=== PATIENT | female | born 1980 | race Caucasian/White ===

== ENCOUNTER 2016-02-17 14:50 | Emergency (ER) | payer OTHER ==
[~2016-02-17] VITALS: Wt 59.5 kg
--- NOTE | 2016-02-17 15:02 | QN ---
Documentation Comment Patient was seen immediately upon arrival as she arrived by ambulance. Chief complaint is for spider bite. The patient will be sent to triage for further vital signs and will be seen by another provider. Medical screening exam was initiated. NALLELY RAMOS MD Feb 17, 2016 15:02
[2016-02-17] MEDS ORDERED: ONDANSETRON (ODT) 4 MG TAB ODT STA (15:47)
[2016-02-17] MEDS ORDERED: HYDROCODONE/APAP (10/325) TAB PO ONE (16:00)
[2016-02-17] MEDS ORDERED: LIDOCAINE 1%/EPI (MDV) 20 ML INJ SC ONE (16:00)
[2016-02-17] MEDS ORDERED: TRIMETHOPRIM/SULFAMETHOX (DS) TAB PO ONE (16:00)
[2016-02-17] MEDS ORDERED: CEPHALEXIN 500 MG CAP PO ONE (16:00)
[2016-02-17] MEDS ORDERED: CEPH-443 PO (16:25)
[2016-02-17] MEDS ORDERED: BACTDS PO (16:25)
[2016-02-17] MEDS ORDERED: HYDR-902 PO (16:25)
--- NOTE | 2016-02-17 18:38 | ERD ---
ER Documentation Chief Complaint Date/Time DATE: 02/17/16 TIME: 18:34 Chief Complaint ABCESS ON LEFT HAND HPI Patient is a 35-year-old female with previous PE who presents with infection. She was brought in by ambulance. She has an infection to the back of her left hand. She says that it started 1 week ago but became worse last night after she tried putting peroxide on it. She said that she is having pain with movement of her left hand at this time. She is left-handed. She has not tried any antibiotics as of yet. It is red and painful. Upon review of old medical records this is the patient's first visit to the emergency department. She does not currently have a primary doctor. She does smoke cigarettes and admits to injecting methamphetamine but does not inject into her hand. ROS All systems reviewed and are negative except as per history of present illness. Medications Home Meds Active Scripts Hydrocodone/Acetaminophen (Lockhart 10-325 Tablet) 1 Each Tablet, 1 TAB PO Q6H Y for PAIN, #7 TAB Prov:NALLELY RAMOS MD 02/17/16 Cephalexin* (Keflex*) 500 Mg Capsule, 500 MG PO QID for 7 Days, CAP Prov:NALLELY RAMOS MD 02/17/16 Sulfamethoxazole-Trimethoprim* (Bactrim* DS) 800-160 Mg Tab, 1 TAB PO BID for 7 Days, TAB Prov:NALLELY RAMOS MD 02/17/16 Allergies Allergies: Coded Allergies: No Known Allergy (Unverified , 02/17/16) PMhx/Soc History of Surgery: No Anesthesia Reaction: No Hx Neurological Disorder: No Hx Respiratory Disorders: No Hx Cardiac Disorders: No Hx Psychiatric Problems: No Hx Miscellaneous Medical Probl: No Hx Alcohol Use: Yes Hx Substance Use: Yes Hx Tobacco Use: Yes Smoking Status: Current every day smoker FmHx Unknown as she was in foster care Physical Exam Vitals Vital Signs Date Time Temp Pulse Resp B/P Pulse Ox O2 Delivery O2 Flow Rate FiO2 02/17/16 15:09 99.9 110 17 128/72 98 Physical Exam Const: Mild distress secondary to pain Head: Atraumatic Eyes: Normal Conjunctiva ENT: Normal External Ears, Nose and Mouth. Neck: Full range of motion..~ No meningismus. Resp: Clear to auscultation bilaterally Cardio: Regular rate and rhythm, no murmurs Abd: Soft, non tender, non distended. Normal bowel sounds Skin: Abscess with cellulitis to the dorsum of the left hand approximately 3 x 3 cm, no fusiform swelling to the digits of the left hand to suggest flexor tenosynovitis Back: No midline or flank tenderness Ext: No cyanosis, or edema Neur: Awake and alert, limited range of motion of the left hand given the swelling and pain of a dorsal abscess Psych: Normal Mood and Affect Results 24 hrs Laboratory Tests Test 02/17/16 16:31 Bedside Glucose 104mg/dL Current Medications Medications (Trade) Dose Ordered Sig/Surendra Route PRN Reason Start Time Stop Time Status Last Admin Dose Admin Trimethoprim/ Sulfamethoxazole (Bactrim (Ds)) 1 tab ONCE ONCE PO 02/17/16 16:00 02/17/16 16:01 DC 02/17/16 16:08 Cephalexin (Keflex) 500 mg ONCE ONCE PO 02/17/16 16:00 02/17/16 16:01 DC 02/17/16 16:08 Acetaminophen/ Hydrocodone Bitart (Lockhart (10/325)) 1 tab ONCE ONCE PO 02/17/16 16:00 02/17/16 16:01 DC 02/17/16 16:08 Ondansetron HCl (Zofran Odt) 4 mg ONCE STAT ODT 02/17/16 15:47 02/17/16 15:49 DC 02/17/16 16:08 Lidocaine/ Epinephrine (Xylocaine 1%/ Epi (Mdv) 20 ml) 20 ml ONCE ONCE SC 02/17/16 16:00 02/17/16 16:01 DC Procedures/MDM Abscess Incision and Drainage with irrigation by me: Location: Left hand dorsum Anesthesia: [Local 1% Lidocaine with epinephrine] Technique: [Irrigated. Disrupted loculations w/ instrumentation ] Packing: [None] Complications: [Neurovascularly intact post procedure] 48 hour wound check. Scar minimization instructions given. Patient's skin symptoms have stabilized while they have been evaluated in the department and are appropriate for outpatient care and work up. Exam and w/u not consistent w/ sepsis, deep space infection, or foreign body. Smoking Cessation Therapy: Pt. was lectured for greater than 3 minutes on the health risks of continued smoking and the benefits of cessation. Patient is a 35-year-old female with methamphetamine use and smoking presents with a abscess to the back of the left hand. There was some mild streaking up the left arm but she is afebrile and otherwise having no sign of sepsis at this time. I believe the best course of action would be incision and drainage and antibiotics. I have given the first dose of Keflex and Bactrim in the ER. I discussed with her the possibility of transfer for hand surgery but she would prefer to try outpatient treatment at this time and therefore I will treat with Bactrim and Keflex for a one-week course. The hand looks much better after incision and drainage. She now has full range of motion. She can return for any worsening symptoms. At this point I doubt flexor tenosynovitis. I doubt sepsis. She should follow-up with the local clinics within 24-48 hours for recheck and have also given her information for Dr. Moncada from hand surgery. I would like her to see a hand surgeon within 24-48 hours as well. Departure Diagnosis: Primary Impression: Cellulitis of hand Additional Impressions: Swelling Abscess Condition: Fair Patient Instructions: Cellulitis, Abscess, Incision And Drainage Referrals: JOHANA MONCADA MD [facility] YOU HAVE RECEIVED A MEDICAL SCREENING EXAM AND THE RESULTS INDICATE THAT YOU DO NOT HAVE A CONDITION THAT REQUIRES URGENT TREATMENT IN THE EMERGENCY DEPARTMENT. FURTHER EVALUATION AND TREATMENT OF YOUR CONDITION CAN WAIT UNTIL YOU ARE SEEN IN YOUR DOCTORS OFFICE WITHIN THE NEXT 1-2 DAYS. IT IS YOUR RESPONSIBILITY TO MAKE AN APPOINTMENT FOR [facility]. IF YOU HAVE A PRIMARY DOCTOR --you should call your primary doctor and schedule an appointment IF YOU DO NOT HAVE A PRIMARY DOCTOR YOU CAN CALL OUR PHYSICIAN REFERRAL HOTLINE AT IF YOU CAN NOT AFFORD TO SEE A PHYSICIAN YOU CAN CHOSE FROM THE FOLLOWING [facility] CLINICS [facility] [address] [facility] [address] [facility]. [facility] [address] [facility] [address] [facility] [address] [facility]. [facility]. [address] Additional Instructions: Call your primary care doctor TOMORROW for an appointment during the next 1-2 days.See the doctor sooner or return here if your condition worsens before your appointment time. SPECIALIST: YOU HAVE A MEDICAL CONDITION WHICH REQUIRES YOU TO SEE A SPECIALIST WITHIN THE NEXT 1-2 DAYS. PLEASE FOLLOW UP WITH YOUR PRIMARY PHYSICIAN FOR REFFERAL.IF YOU DO NOT HAVE A PRIMARY CARE PHYSICIAN AND/OR YOU CAN NOT AFFORD TO SEE A PHYSICIAN THE FOLLOWING RESOURCES HAVE BEEN SUPPLIED TO YOU. IT IS YOUR RESPONSIBILITY TO BE SEEN BY THE SPECIALIST NALLELY RAMOS MD Feb 17, 2016 18:37
== END 2016-02-17 16:36 | disposition home or self-care (01) ==
LOC: FTE 14:50
DX: L03.114 Cellulitis of left upper limb (principal); M79.89 Other specified soft tissue disorders; F17.210 Nicotine dependence, cigarettes, uncomplicated
CPT/HCPCS: 82962

== ENCOUNTER 2018-08-04 08:53 | Emergency (ER) | payer SELFPAY ==
[~2018-08-04] VITALS: Ht 170.2 cm; Wt 54.5 kg
[~2018-08-04 08:53] MED LIST: BACTDS PO; CEPH-443 PO; HYDR-3980 PO
[2018-08-04 09:08] VITALS: BP 131/79; PULSE 90; RESP 20; Ht 170.2 cm; Wt 54.5 kg
[2018-08-04] MEDS ORDERED: ONDANSETRON (ODT) 4 MG TAB ODT STA (09:48)
[2018-08-04] MEDS ORDERED: ACET-141 PO (12:39)
[2018-08-04] MEDS ORDERED: CEPH-443 PO (12:40)
--- NOTE | 2018-08-04 14:08 | ERD ---
ER Documentation Chief Complaint Chief Complaint R88 left lower quadrant pain Hx: cervical CA satge 2 HPI History of Present Illness: 37-year-old HOMELESS female who reports a past medical history of factor VIII and cervical cancer coming in today due to complaint of left lower quadrant abdominal pain. Patient reports that she was diagnosed last year with stage II cervical cancer but she has not seek treatment because " it was just too much that it will not take care of it". Associated symptoms includes dysuria. At home pharmacological/nonpharmacological treatment for symptoms: Patient reports buying Vicodin off the streets Denies recent foreign travel ROS All systems reviewed and are negative except as per history of present illness. Medications Home Meds Active Scripts Cephalexin* (Keflex*) 500 Mg Capsule, 500 MG PO QID for URINARY TRACT INFECTION for 7 Days, CAP Prov:CHRISTIANE KOWALSKI NP 08/04/18 Acetaminophen* (Acetaminophen*) 500 MG Extra Strength Tablet, 1000 MG PO Q6H PRN for PAIN AND OR ELEVATED TEMP, #30 TAB Prov:CHRISTIANE KOWALSKI NP 08/04/18 Hydrocodone/Acetaminophen (Edwall 10-325 Tablet) 1 Each Tablet, 1 TAB PO Q6H PRN for PAIN, #7 TAB Prov:NALLELY RAMOS MD 02/17/16 Cephalexin* (Keflex*) 500 Mg Capsule, 500 MG PO QID for 7 Days, CAP Prov:NALLELY RAMOS MD 02/17/16 Sulfamethoxazole-Trimethoprim* (Bactrim* DS) 800-160 Mg Tab, 1 TAB PO BID for 7 Days, TAB Prov:NALLELY RAMOS MD 02/17/16 Allergies Allergies: Coded Allergies: No Known Allergy (Unverified , 02/17/16) PMhx/Soc History of Surgery: No Anesthesia Reaction: No Hx Neurological Disorder: No Hx Respiratory Disorders: No Hx Cardiac Disorders: No Hx Psychiatric Problems: No Hx Miscellaneous Medical Probl: No Hx Alcohol Use: Yes Hx Substance Use: Yes Hx Tobacco Use: Yes Smoking Status: Current every day smoker FmHx Family History: No diabetes Physical Exam Vitals Vital Signs Date Temp Pulse Resp B/P (MAP) Pulse Ox O2 O2 Flow FiO2 Time Delivery Rate 08/04/18 99.0 90 20 131/79 99 09:08 (96) Physical Exam Const: No acute distress, anxious Head: Atraumatic Eyes: Normal Conjunctiva ENT: Normal External Ears, Nose and Mouth. Neck: Full range of motion. No meningismus. Resp: Clear to auscultation bilaterally Cardio: Regular rate and rhythm, no murmurs Abd: Soft, left lower quadrant and suprapubic tenderness, non distended. Normal bowel sounds Skin: No petechiae or rashes, small open wounds in which patient appears to have picked that skin or possibly drug user wound Back: No midline or flank tenderness Ext: No cyanosis, or edema Neur: Awake and alert Psych: Normal Mood and Affect Result Diagram: 08/04/1893308/04/18933 Results 24 hrs Laboratory Tests Test 08/04/18 09:34 08/04/18 09:45 White Blood Count 9.6 10^3/ul Red Blood Count 4.42 10^6/ul Hemoglobin 12.4 g/dl Hematocrit 38.7 % Mean Corpuscular Volume 87.6 fl Mean Corpuscular Hemoglobin 28.1 pg Mean Corpuscular Hemoglobin Concent 32.0 g/dl Red Cell Distribution Width 12.3 % Platelet Count 270 10^3/UL Mean Platelet Volume 8.2 fl Immature Granulocytes % 0.200 % Neutrophils % 77.5 % Lymphocytes % 14.6 % Monocytes % 7.0 % Eosinophils % 0.4 % Basophils % 0.3 % Nucleated Red Blood Cells % 0.0 /100WBC Immature Granulocytes # 0.020 10^3/ul Neutrophils # 7.5 10^3/ul Lymphocytes # 1.4 10^3/ul Monocytes # 0.7 10^3/ul Eosinophils # 0.0 10^3/ul Basophils # 0.0 10^3/ul Nucleated Red Blood Cells # 0.0 10^3/ul Urine Color YELLOW Urine Clarity CLOUDY Urine pH 7.0 Urine Specific [place] 1.019 Urine Ketones NEGATIVE mg/dL Urine Nitrite POSITIVE mg/dL Urine Bilirubin NEGATIVE mg/dL Urine Urobilinogen NEGATIVE mg/dL Urine Leukocyte Esterase TRACE Yasmin/ul Urine Microscopic RBC 1 /HPF Urine Microscopic WBC 24 /HPF Urine Bacteria FEW /HPF Urine Mucus FEW /HPF Urine Hemoglobin NEGATIVE mg/dL Urine Glucose NEGATIVE mg/dL Urine Total Protein NEGATIVE mg/dl Sodium Level 139 mmol/L Potassium Level 4.3 mmol/L Chloride Level 100 mmol/L Carbon Dioxide Level 30 mmol/L Anion Gap 9 Blood Urea Nitrogen 14 mg/dl Creatinine 0.74 mg/dl Est Glomerular Filtrat Rate mL/min > 60 mL/min Glucose Level 83 mg/dl Calcium Level 9.3 mg/dl Total Bilirubin 0.8 mg/dl Direct Bilirubin 0.00 mg/dl Indirect Bilirubin 0.8 mg/dl Aspartate Amino Transf (AST/SGOT) 18 IU/L Alanine Aminotransferase (ALT/SGPT) 15 IU/L Alkaline Phosphatase 61 IU/L Total Protein 8.1 g/dl Albumin 4.3 g/dl Globulin 3.80 g/dl Albumin/Globulin Ratio 1.13 Lipase 129 U/L Urine Opiates Screen Negative Urine Barbiturates Negative Urine Amphetamines Screen POSITIVE Urine Benzodiazepines Screen Negative Urine Cocaine Screen Negative Urine Cannabinoids Negative POC Beta HCG, Qualitative NEGATIVE Current Medications Medications Dose Sig/Surendra Start Time Status Last (Trade) Ordered Route PRN Stop Time Admin Dose Reason Admin Ondansetron 4 mg ONCE STAT 08/04/18 DC 08/04/18 HCl (Zofran ODT 09:48 09:51 Odt) 08/04/18 09:49 Procedures/MDM ED COURSE: ED course includes a thorough examination and history. The patient was stable throughout ED course. I kept the patient and/or family informed of laboratory and diagnostic imaging results throughout the ED course. LABS: CBC: no e/o of systemic infection or severe anemia. CMP: no e/o severe acidosis, alkalosis, renal failure, diabetic ketoacidosis, liver disease. Lipase within normal limits. Urine negative. Urine drug screen positive for amphetamines. Urinalysis positive for nitrites, trace leukocyte Estrace, 24 WBCs, few bacteria MEDICATIONS GIVEN IN ER: Zofran Patient tolerated medication well with no adverse reactions. Patient reported improvement in pain. DIAGNOSTIC IMAGING: Read by radiologist. IMPRESSION: 1. Grossly unremarkable pelvic ultrasound. 2. IUD normally located within the endometrial canal. 3. Normal Doppler flow to both ovaries. 4. No free fluid RPTAT: HH .Reji Cronin MD, Date Time Electronically viewed and signed by .Reji Cronin MD, on 08/04/2018 12:31 PROCEDURES: None. MEDICAL DECISION MAKING: Low suspicion for life-threatening medical emergency. Low suspicion for acute abdominal emergency. Otherwise healthy patient presenting with constellation of symptoms likely representing urinary tract infection as characterized by history, physical exam findingS, imaging findings, lab findings. Patient reassessment: Unable to reassess patient, went to give patient disposition and results of testing and she was not found. Multiple attempts to locate patient and unable to locate her. PRESCRIPTIONS FOR HOME: Cephalexin, acetaminophen DISPOSITION: DISCHARGE At this time, patient is stable for discharge and outpatient management. I have instructed the patient to follow-up with his/her primary care physician in 1-2 days. I have discussed with the patient the possibility of needing to see a specialist for further workup and imaging studies if symptoms persist. I have instructed the patient to promptly return to the ER for any new or worsening symptoms including increased pain, fever, nausea, vomiting, weakness or LOC. The patient and/or family expressed understanding of and agreement with this plan. All questions were answered. Home care instructions were provided. DISCLAIMER: Inadvertent spelling and grammatical errors are likely due to EHR/dictation software use and do not reflect on the overall quality of patient care. Also, please note that the electronic time recorded on this note does not necessarily reflect the actual time of the patient encounter. Departure Diagnosis: Primary Impression: UTI (urinary tract infection) Urinary tract infection type: site unspecified Hematuria presence: without hematuria Qualified Codes: N39.0 - Urinary tract infection, site not specified Additional Impression: Pain, abdominal, LLQ Condition: Stable Patient Instructions: Urinary Tract Infections in Women Referrals: [facility] YOU HAVE RECEIVED A MEDICAL SCREENING EXAM AND THE RESULTS INDICATE THAT YOU DO NOT HAVE A CONDITION THAT REQUIRES URGENT TREATMENT IN THE EMERGENCY DEPARTMENT. FURTHER EVALUATION AND TREATMENT OF YOUR CONDITION CAN WAIT UNTIL YOU ARE SEEN IN YOUR DOCTORS OFFICE WITHIN THE NEXT 1-2 DAYS. IT IS YOUR RESPONSIBILITY TO MAKE AN APPOINTMENT FOR [facility]. IF YOU HAVE A PRIMARY DOCTOR --you should call your primary doctor and schedule an appointment IF YOU DO NOT HAVE A PRIMARY DOCTOR YOU CAN CALL OUR PHYSICIAN REFERRAL HOTLINE AT IF YOU CAN NOT AFFORD TO SEE A PHYSICIAN YOU CAN CHOSE FROM THE FOLLOWING [facility] [address] [facility]. [facility] [address] [facility]. [address] [facility] [address] [facility] [address] [facility] [address] [facility]. [facility] [address] [facility]. [facility] YOU HAVE RECEIVED A MEDICAL SCREENING EXAM AND THE RESULTS INDICATE THAT YOU DO NOT HAVE A CONDITION THAT REQUIRES URGENT TREATMENT IN THE EMERGENCY DEPARTMENT. FURTHER EVALUATION AND TREATMENT OF YOUR CONDITION CAN WAIT UNTIL YOU ARE SEEN IN YOUR DOCTORS OFFICE WITHIN THE NEXT 1-2 DAYS. IT IS YOUR RESPONSIBILITY TO MAKE AN APPOINTMENT FOR [facility] CARE. IF YOU HAVE A PRIMARY DOCTOR --you should call your primary doctor and schedule and appointment IF YOU DO NOT HAVE A PRIMARY DOCTOR YOU CAN CALL OUR PHYSICIAN REFERRAL HOTLINE AT . IF YOU CAN NOT AFFORD TO SEE A PHYSICIAN YOU CAN CHOSE FROM THE FOLLOWING [facility] INSTITUTIONS: [facility] [address] [place] [address] [facility] [address] [place] [address] [facility] [address] [place] [address] Additional Instructions: Thank you very much for allowing us to participate in your care. Your health and safety is our top priority at [facility]. It is important to read all discharge instructions and education provided in your discharge packet. Call your primary care doctor TOMORROW for an appointment during the next 2-4 days and bring all the information and medications prescribed. Have prescriptions filled and follow precisely the directions on the label. -Cephalexin is an antibiotic; take this medication every day as listed on your prescription. You must complete the entire course of treatment that is listed on your prescription this is very important because it takes a certain number of days to kill the bacteria that is causing the infection. If the symptoms get worse and your provider is unavailable, return to the Emergency Department immediately. CHRISTIANE KOWALSKI NP Aug 04, 2018 14:08
== END 2018-08-04 13:18 | disposition home or self-care (01) ==
LOC: FTE 08:53
DX: N39.0 Urinary tract infection, site not specified (principal); F17.210 Nicotine dependence, cigarettes, uncomplicated; R10.2 Pelvic and perineal pain; Z85.41 Personal history of malignant neoplasm of cervix uteri
CPT/HCPCS: 36415; 76830; 76856; 80053; 80307; 81001; 81025; 83690; 85025